=== PATIENT | male | born 1970 | race Caucasian/White ===

== ENCOUNTER 2018-02-20 10:57 | Emergency (ER) | payer SELFPAY ==
[~2018-02-20] VITALS: Ht 175.3 cm; Wt 68.0 kg
[2018-02-20 10:59] VITALS: BP 174/102; PULSE 70; RESP 19; TEMP 97.9; O2SAT 98
[2018-02-20] MEDS ORDERED: PROT40TA PO (11:11)
[2018-02-20] MEDS ORDERED: AMLO5 PO (11:11)
[2018-02-20] MEDS ORDERED: VALS1TAB65 PO (11:11)
[2018-02-20] MEDS ORDERED: ROSU20 PO (11:11)
--- NOTE | 2018-02-20 11:20 | PD ---
HPI Chief Complaint: Cold / Flu Symptoms Time Seen by Provider: 11:17 Travel History International Travel<30 days: No Contact w/Intl Traveler<30days: No Traveled to known affect area: No History of Present Illness HPI 47-year-old male with PMH of HTN, HLD, GERD, current smoker presents the ED for evaluation of nonproductive cough. Onset February 10. Cough is nonproductive. Patient endorses chills, sinus congestion. He denies measuring a fever at home , ear pain, sore throat, sneezing, history of seasonal allergies, chest pain, shortness of breath. No treatment attempted at home. Patient does not currently have a primary care provider. PFSH Social History Tobacco Use: Yes (1 PPD) Allergies-Medications (Allergen,Severity, Reaction): Coded Allergies: No Known Allergies (Unverified , 02/20/18) Reported Meds & Prescriptions Reported Meds & Active Scripts Active Tessalon Perles (Benzonatate) 100 Mg Cap 200 Mg PO TID PRN Brooke-D 24 Hour Allergy (Fexofenadine-Pseudoephedrine ER 24 HR) 180-240 Andrzej 1 Tab PO DAILY Fluticasone Nasal [place] 50 Mcg/Act Naspr 50 Mcg EACH NARE BID 14 Days 50 mcg/spray Azithromycin 250 Mg Tab 250 Mg PO DIRECTED Take 2 tabs (500 mg) on day 1 then 1 tab daily x 4 days. Reported Crestor (Rosuvastatin Calcium) 20 Mg Tab 20 Mg PO DAILY Norvasc (Amlodipine Besylate) 5 Mg Tab 5 Mg PO DAILY Protonix (Pantoprazole Sodium) 40 Mg Tab 40 Mg PO DAILY Valsartan 160 Mg Tab 160 Mg PO BID Review of Systems Except as stated in HPI: all other systems reviewed are Neg Physical Exam Narrative GENERAL: Well-nourished, well-developed white male in NAD. SKIN: Warm and dry. HEAD: Normocephalic. Atraumatic. EYES: No scleral icterus. No injection or drainage. PERRLA. EOMI. ENT: Pearly prasad tympanic membranes bilaterally. Nasal mucosa is moist. Oropharynx with mild posterior erythema. No edema or exudate. NECK: Supple, trachea midline. No JVD or lymphadenopathy. CARDIOVASCULAR: Regular rate and rhythm without murmurs, gallops, or rubs. RESPIRATORY: Breath sounds clear and equal bilaterally. No accessory muscle use. GASTROINTESTINAL: Abdomen soft, non-tender, nondistended. + Bowel sounds MUSCULOSKELETAL: No cyanosis, or edema. Moves easily from sitting to standing. Walks with normal gait. BACK: Nontender without obvious deformity. No CVA tenderness. Data Data Last Documented VS Vital Signs Date Time Temp Pulse Resp B/P (MAP) Pulse Ox O2 Delivery O2 Flow Rate FiO2 02/20/18 10:59 97.9 70 19 174/102 (126) 98 Orders Orders Chest, Pa & Lat (02/20/18 11:12) Ed Discharge Order (02/20/18 11:47) [facility] Medical Decision Making Medical Screen Exam Complete: Yes Emergency Medical Condition: Yes Differential Diagnosis viral syndrome versus smokers cough versus bronchitis versus upper airway cough syndrome versus other Narrative Course 47-year-old male with PMH of HTN, HLD, GERD, current smoker presents the ED for evaluation of nonproductive cough. Onset February 10. Accompanied by chills, sinus congestion. He denies measuring a fever at home, ear pain, sore throat, sneezing, history of seasonal allergies, chest pain, shortness of breath. No PCP. Vitals reviewed. Patient's hypertensive on presentation, states he has not taken his morning medications. On exam there is mild posterior erythema of the oropharynx. Lung sounds clear and equal bilaterally. CXR reveals no acute cardiopulmonary disease per radiology read. Will treat for upper airway cough syndrome in a smoker. Patient's prescribed Z-John, daily fluticasone nasal spray , daily antihistamine, a few doses of Tessalon. He is instructed to take the medication as prescribed, establish primary care with the [facility]. He indicated understanding the instructions. He is stable and discharged home. Diagnosis Primary Impression: Upper airway cough syndrome Additional Impression: Smoker Referrals: [facility] Additional Instructions: Stop smoking. Rest, hydrate. Begin antibiotics today and take them until every dose is gone. Take daily antihistamine as prescribed. Use intranasal steroids daily as prescribed. Tessalon Perles every 6-8 hours to reduce the urge to cough. Follow-up with the [facility] to establish primary care. Return to the ED for worsening symptoms or any urgent or emergent medical condition. Med/Other Pt SpecificInfo: Prescription(s) given Scripts Benzonatate (Tessalon Perles) 100 Mg Cap 200 MG PO TID Y for COUGH, #21 CAP 0 Refills Prov: Noman Woodard MD 02/20/18 Fexofenadine-Pseudoephedrine ER 24 HR (Brooke-D 24 Hour Allergy) 180-240 Andrzej 1 TAB PO DAILY for Allergy Management, #30 TAB 0 Refills Prov: Noman Woodard MD 02/20/18 Fluticasone Nasal [place] (Fluticasone Nasal [place]) 50 Mcg/Act Naspr 50 MCG EACH NARE BID for Allergy Management for 14 Days, #1 BOTTLE 0 Refills 50 mcg/spray Prov: Noman Woodard MD 02/20/18 Azithromycin (Azithromycin) 250 Mg Tab 250 MG PO DIRECTED for Infection, #6 TAB 0 Refills Take 2 tabs (500 mg) on day 1 then 1 tab daily x 4 days. Prov: Noman Woodard MD 02/20/18 Disposition: 01 DISCHARGE HOME Condition: Stable Mag Timmons February 20, 2018 11:20
[2018-02-20] MEDS ORDERED: AZIT250T3 PO (11:47)
[2018-02-20] MEDS ORDERED: FEXO1TAB97 PO (11:47)
[2018-02-20] MEDS ORDERED: BENZ100 PO (11:47)
[2018-02-20] MEDS ORDERED: FLUT50SP EACH NARE (11:47)
--- NOTE | 2018-02-20 11:59 | RADRPT ---
EXAM DATE/TIME: 02/20/2018 11:36 [place] COMPARISON: No previous studies available for comparison. INDICATIONS : Cough, shortness of breath, and tightness in chest. MEDICAL HISTORY : Hypertension. Stroke. SURGICAL HISTORY : None. ENCOUNTER: Initial ACUITY: 2 weeks PAIN SCORE: 0/10 LOCATION: Bilateral chest FINDINGS: PA and lateral views of the chest demonstrate a normal-sized cardiac silhouette. There is no effusion , consolidation, or pneumothorax. The bones and soft tissues demonstrate no acute abnormality. There are mild degenerative changes of the thoracic spine. CONCLUSION: No acute cardiopulmonary abnormality is identified. Siva Terrell MD on February 20, 2018 at 11:56 Board Certified Radiologist. This report was verified electronically.
== END 2018-02-20 12:24 | disposition home or self-care (01) ==
LOC: NEPK 10:57
DX: R05 Cough (principal); F17.210 Nicotine dependence, cigarettes, uncomplicated; E78.5 Hyperlipidemia, unspecified; I10 Essential (primary) hypertension; K21.9 Gastro-esophageal reflux disease without esophagitis
CPT/HCPCS: 71046; 99283

== ENCOUNTER 2018-03-28 12:39 | Emergency (ER) | payer OTHER ==
[~2018-03-28] VITALS: Ht 175.3 cm; Wt 66.5 kg
[~2018-03-28 12:39] MED LIST: AMLO5 PO; AZIT250T3 PO; BENZ100 PO; FEXO1TAB97 PO; FLUT50SP EACH NARE; PROT40TA PO; ROSU20 PO; VALS1TAB65 PO
[2018-03-28 12:41] VITALS: BP 145/88; PULSE 78; RESP 16; TEMP 98; O2SAT 99
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
[2018-03-28] MEDS ORDERED: ROBA500T PO (15:41)
== END 2018-03-28 15:50 | disposition home or self-care (01) ==
LOC: NEPK 12:39
DX: S13.4XXA Sprain of ligaments of cervical spine, initial encounter (principal); S46.912A Strain of unspecified muscle, fascia and tendon at shoulder and upper arm level, left arm, initial encounter; V43.62XA Car passenger injured in collision with other type car in traffic accident, initial encounter
CPT/HCPCS: 72125